=== PATIENT | female | born 1970 | race Caucasian/White ===

== ENCOUNTER 2017-03-15 19:48 | Emergency (ER) | payer MEDICARE, OTHER ==
--- NOTE | 2017-03-15 20:22 | Diagnostic Imaging Report ---
SHELL MCGUIRE (TJ) - ER [facility] [address] [address] Report Submission Date: Mar 15, 2017 8:21:13 PM CDT Patient Study Name: SHANIA FIGUEROA Date: Mar 15, 2017 8:07:32 PM CDT Modality Type: CR Gender: F Description: CHEST : 68 Institution: [facility] Physician: SHELL MCGUIRE (TJ) - ER Chest 2 views History: Left rib pain and cough Findings: The frontal film is expiratory and nondiagnostic. On the lateral film there is no evidence of infiltrate or pleural effusion. Low lung volumes are observed. Heart size and pulmonary vascularity are normal. Surgical clips are present in the left upper quadrant. Mild splenomegaly may be present. Impression: Low lung volumes. The PA film is expiratory and nondiagnostic. Possible splenomegaly. Electronically signed on Mar 15, 2017 8:21:13 PM CDT by: Mo [place]
[2017-03-15] MEDS ORDERED: KETOROLAC TROMETHAMINE 60 MG/2 ML VIAL IM ONE (20:25)
[2017-03-15] MEDS ORDERED: guaiFENesin/CODEINE PHOS 30ML BOTTLE PO ONE (20:28)
--- NOTE | 2017-03-15 20:35 | ED Physician Documentation ---
Upper Respiratory Symptoms - HISTORIAN Historian: patient - HPI Stated Complaint: cough since for 4 days, Lt lower rib pain Chief Complaint: Cough/ Upper Respiratory Onset: days ago (Monday) Associated Symptoms: denies: fever, chills, earache, runny nose, sinus pain, sinus drainage, sore throat, chest pain, productive cough Further Comments: yes (46 year old female present with left lower chest wall pain, work with cough and deep breathing, tender to palpation. Patient denies any injury or fall.) - ROS CONST/EYES: denies: weakness, eye redness, eye itching CVS/RESP: chest pain. denies: shortness of breath, palpitations LYMPH: denies: leg swelling, rash, swollen glands, ankle swelling GI/: none NEURO/PSYCH: denies: fainting, dizziness MS/SKIN: denies: joint pain, muscle aches, rash - PAST HX Lung Disease: none PE Risk Factors: none Other History: other (hypothyroidism) Surgeries/Procedures: none Allergies/Adverse Reactions: Allergies Allergy/AdvReac Type Severity Reaction Status Date / Time No Known Drug Allergies Allergy Verified 03/15/17 20:03 Home Medications: Ambulatory Orders Medication Instructions Recorded Citalopram Hydrobromide [Celexa] 20 mg PO D 03/15/17 Ketorolac Tromethamine [Toradol] 10 mg PO TID #15 tablet 03/15/17 Loratadine [Claritin] 10 mg PO D 03/15/17 - SOCIAL HX Smoking History: non-smoker - FAMILY HX Family History: none - VITAL SIGNS Vital Signs: Vital Signs Temp Pulse Resp BP Pulse Ox 98.6 F 85 18 132/93 97 03/15/17 19:49 03/15/17 19:49 03/15/17 19:49 03/15/17 19:49 03/15/17 19:49 - REVIEWED ASSESSMENTS Nursing Assessment Reviewed: Yes Vitals Reviewed: Yes Progress - Progress Progress: 2039 Mild splenomegaly may be present per radiologist on xray. Discussed with patient, will progress with lab and CT Abdomen/pelvis [address] findings with patient. Recommended 1/2 bottle magnesium citrate tonight and simethicone prn. - EKG/XRAY/CT XRAY: chest (negative) ED Results Lab/Radiology - Lab Results Lab Results: Lab Results 03/15/17 03/15/17 21:00 21:00 WBC 4.70 K/ul K/ul (4.00-12.00) RBC 3.90 M/ul M/ul (3.90-5.20) Hgb 11.1 g/dL L g/dL (12.0-16.0) Hct 35.3 % % (34.5-46.5) MCV 90.3 fl fl (80.0-100.0) MCH 28.6 pg pg (28.0-34.0) MCHC 31.6 g/dL g/dL (30.0-36.0) RDW 13.8 % % (11.3-14.3) Plt Count 208 K/mm3 K/mm3 (130-400) Neut % (Auto) 62.4 % % (39.0-79.0) Lymph % (Auto) 27.7 % % (16.0-50.0) [place] % (Auto) 3.6 % % (0.0-11.0) Eos % (Auto) 3.9 % % (0.0-6.8) Baso % (Auto) 0.5 (0.0-1.5) Neut # 2.9 # k/uL # k/uL (1.4-7.7) Lymph # 1.3 # k/uL # k/uL (0.6-4.0) [place] # 0.2 # k/uL # k/uL (0.0-0.9) Eos # 0.2 # k/uL # k/uL (0.0-0.6) Baso # 0.0 # k/uL # k/uL (0.0-0.5) Reactive Lymphs % 1.9 % % (0.0-5.0) Reactive Lymphs # 0.1 # k/uL # k/uL (0.0-0.8) Sodium 139 mmol/L mmol/L (136-145) Potassium 4.3 mmol/L mmol/L (3.5-5.0) Chloride 108 mmol/L mmol/L (98-110) Carbon Dioxide 28 mmol/L mmol/L (20-32) BUN 22 mg/dL mg/dL (10-26) Creatinine 0.6 mg/dL mg/dL (0.4-1.5) Estimated Creat Clear 161 Est GFR ( Amer) > 60 (60 - ) Est GFR (Non-Af Amer) > 60 (60 - ) Glucose 102 mg/dL H mg/dL (70-99) Calcium 9.2 mg/dL mg/dL (8.5-10.5) Total Bilirubin 0.3 mg/dL mg/dL (0.2-1.2) AST 34 U/L U/L (0-41) ALT 50 U/L H U/L (0-45) Alkaline Phosphatase 137 U/L H U/L (46-116) Total Protein 7.4 g/dL g/dL (6.0-8.5) Albumin 4.5 g/dL g/dL (3.0-5.5) - Radiology Radiology Impressions: Chest 2 views History: Left rib pain and cough Findings: The frontal film is expiratory and nondiagnostic. On the lateral film there is no evidence of infiltrate or pleural effusion. Low lung volumes are observed. Heart size and pulmonary vascularity are normal. Surgical clips are present in the left upper quadrant. Mild splenomegaly may be present. Impression: Low lung volumes. The PA film is expiratory and nondiagnostic. Possible splenomegaly. CT of the abdomen and pelvis with contrast Clinical history: Productive cough. Left-sided rib pain under the breast. Shortness of breath. Contrast administered: 92 ml of Omnipaque-300. Technique: CT of the abdomen and pelvis is performed with intravenous infusion of contrast. Sagittal and coronal reconstructions are performed by the technologist. Findings: There is dependent atelectasis in the lung bases. The liver and spleen demonstrate normal attenuation without focal defect. The gallbladder is surgically absent. There is mild distension of the extrahepatic and central intrahepatic biliary tree with the common bile duct measuring up to 11 mm in diameter. There is no pancreatic or adrenal abnormality. The kidneys demonstrate symmetric enhancement. There is no retroperitoneal mass or significant adenopathy. The appendix is visualized and is within normal limits. The bladder is unremarkable. There is no free fluid in the pelvis or abdomen. Uterus and adnexal structures are within normal limits. Postoperative changes are seen in the upper abdomen consistent with previous gastric bypass. Impression: 1. Postoperative changes. 2. Mild distension of the biliary tree likely related to the patient's history of prior cholecystectomy. 3. Vascular calcification. 4. Negative appendix. - Orders Orders: ED Orders Category Date Time Status CHEST 2 VIEW [CHEST P.A.&LAT 2 VIEWS] [RAD] Stat Exams 03/15/[address] ABD & PELVIS W/ CON Stat Exams 03/15/17 Ordered CBC/PLATELET/DIFF Stat Lab 03/15/17 21:00 Completed CMP Stat Lab 03/15/17 21:00 Completed SERUM HCG Stat Lab 03/15/17 Ordered Ketorolac Tromethamine [Toradol] Med 03/15/17 20:25 Discontinued 60 mg IM NOW ONE guaiFENesin/CODEINE PHOS 30ML [Robitussin AC] Med 03/15/17 20:28 Discontinued 10 ml PO NOW ONE Upper Respiratory Symptoms - EXAM General Appearance: mild distress EENT: eyes nml inspection, nml ENT inspection, lids & conjunct. nml, PERRL, ear nml, nose nml, pharynx nml, airway nml Respiratory: no resp. distress, breath sounds nml, no pain on inspiration, speaks full sentences, chest wall tenderness (left lateral chest wall; along sternal borders. 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 Do not take ibuprofen, aleve, naproxen or any other NSAID while you are on toradol. Take 1/2 bottle of magnesium citrate tonight. It is over the counter. Home Medications: Ambulatory Orders Citalopram Hydrobromide [Celexa] 20 mg PO D 03/15/17 Ketorolac Tromethamine [Toradol] 10 mg PO TID #15 tablet 03/15/17 Loratadine [Claritin] 10 mg PO D 03/15/17 Condition: Stable Disposition: 01 HOME, SELF-CARE Decision to Admit: NO Decision Time: 22:15
[2017-03-15 21:05] LABS: BASOPHILS % 0.5 (0.0-1.5); EOSINOPHILS % 3.9 % (0.0-6.8); MEAN CORPUSCULAR HEMOGLOBIN 28.6 pg (28.0-34.0); MEAN CORPUSCULAR VOLUME 90.3 fl (80.0-100.0); MONOCYTES % 3.6 % (0.0-11.0); NEUTROPHILS # 2.9 # k/uL (1.4-7.7)
[2017-03-15 21:21] LABS: eGFR (African) > 60; eGFR (Non-African) > 60
--- NOTE | 2017-03-15 22:23 | Diagnostic Imaging Report ---
SHELL MCGUIRE (TJ) - ER [facility] [address] [facility].[address] [address] Report Submission Date: Mar 15, 2017 10:08:21 PM CDT Patient Study Name: SHANIA FIGUEROA Date: Mar 15, 2017 9:38:26 PM CDT Modality Type: CT\SR Gender: F Description: CT ABD & PELVIS W/ CON : 68 Institution: [facility] Physician: SHELL MCGUIRE) - ER CT of the abdomen and pelvis with contrast Clinical history: Productive cough. Left-sided rib pain under the breast. Shortness of breath. Contrast administered: 92 ml of Omnipaque-300. Technique: CT of the abdomen and pelvis is performed with intravenous infusion of contrast. Sagittal and coronal reconstructions are performed by the technologist. Findings: There is dependent atelectasis in the lung bases. The liver and spleen demonstrate normal attenuation without focal defect. The gallbladder is surgically absent. There is mild distension of the extrahepatic and central intrahepatic biliary tree with the common bile duct measuring up to 11 mm in diameter. There is no pancreatic or adrenal abnormality. The kidneys demonstrate symmetric enhancement. There is no retroperitoneal mass or significant adenopathy. The appendix is visualized and is within normal limits. The bladder is unremarkable. There is no free fluid in the pelvis or abdomen. Uterus and adnexal structures are within normal limits. Postoperative changes are seen in the upper abdomen consistent with previous gastric bypass. Impression: 1. Postoperative changes. 2. Mild distension of the biliary tree likely related to the patient's history of prior cholecystectomy. 3. Vascular calcification. 4. Negative appendix. Electronically signed on Mar 15, 2017 10:08:21 PM CDT by: Mk [place]
[2017-03-16 00:29] VITALS: BP 134/78
== END 2017-03-15 22:25 | disposition home or self-care (01) ==
LOC: ED 19:48
DX: R09.1 Pleurisy (principal); R14.1 Gas pain
CPT/HCPCS: 71020; 74177; 80053; 85025; J1885; 84703; 96372; 99283; A9698; S1016

== ENCOUNTER 2017-04-17 13:08 | Emergency (ER) | payer MEDICARE ==
[2017-04-17] MEDS ORDERED: ORPHENADRINE CITRATE 60 MG/2ML IM ONE (13:23)
[2017-04-17] MEDS ORDERED: BUTORPHANOL TARTRATE 2 MG/ML VIAL IM ONE (13:23)
[2017-04-17] MEDS ORDERED: KETOROLAC TROMETHAMINE 60 MG/2 ML VIAL IM ONE (13:24)
[2017-04-17 14:17] VITALS: BP 110/74
--- NOTE | 2017-04-17 18:27 | ED Physician Documentation ---
Low Back Pain - HISTORIAN Historian: patient - HPI Stated Complaint: back pain Chief Complaint: Low Back Pain/ Injury History: history of chronic pain: Onset: days ago (Monday) Duration: continues in ED Recent Injury: No Severity: severe Worsened By:: supine Relieved By: nothing Further Comments: yes (46 year old female patient presents with back pain radiating down left leg. Patient denies heavy lifting, reports history of bulging disk in L-spine. Rates pain 9/10, denies loss of bowel or bladder, denies numbness.) - ROS CONST: no problems CVS/RESP: none EYES/ENT: none MS/SKIN/LYMPH: leg pain (left), back pain. denies: calf pain, neck pain, joint pain, leg swelling, rash, swollen glands, ankle swelling Neuro/Psych: none GI/: denies: abdominal pain, black stools - PAST HX Past History: back pain Other History: other (hypothyroidism, depression, hypothyroidism) Surgeries/Procedures: cholecystectomy, BTL, , other (gastric bypass, right carpal tunnel, ) Allergies/Adverse Reactions: Allergies Allergy/AdvReac Type Severity Reaction Status Date / Time No Known Drug Allergies Allergy Verified 04/17/17 13:52 Home Medications: Ambulatory Orders Medication Instructions Recorded Citalopram Hydrobromide [Celexa] 20 mg PO D 03/15/17 Loratadine [Claritin] 10 mg PO D 03/15/17 Baclofen [Liorasal] 10 mg PO QID #30 tablet 04/17/17 Levothyroxine Sodium [Synthroid] 75 mcg PO DAILY 04/17/17 Methylprednisolone [Medrol] 4 mg PO DAILY #1 tab.ds.pk 04/17/17 - SOCIAL HX Smoking History: cigarettes - FAMILY HX Family History: none - VITAL SIGNS Vital Signs: Vital Signs Temp Pulse Resp BP Pulse Ox 98.1 F 82 18 110/74 98 04/17/17 14:16 04/17/17 14:16 04/17/17 14:16 04/17/17 14:16 04/17/17 14:16 - REVIEWED ASSESSMENTS Nursing Assessment Reviewed: Yes Vitals Reviewed: Yes Progress - Progress Progress: Patient medicated with stadol, toradol and norflex while in ER. ED Results Lab/Radiology - Orders Orders: ED Orders Category Date Time Status Butorphanol Tartrate [Stadol] Med 04/17/17 13:23 Discontinued 2 mg IM NOW ONE Ketorolac Tromethamine [Toradol] Med 04/17/17 13:24 Discontinued 60 mg IM NOW ONE Orphenadrine Citrate [Norflex] Med 04/17/17 13:23 Discontinued 60 mg IM NOW ONE Low Back Pain/Injury - Physical Exam General Appearance: moderate distress EENT: eye inspection normal, IVY Resp/CVS: chest non-tender, breath sounds nml, heart sounds nml, no resp. distress, lungs clear, reg. rate & rhythm Abdomen: non-tender, no organomegaly, no pulsatile mass Back: non-tender, painless ROM Straight Leg Raising: Positive Left, Positive Right Neuro/Psych: oriented x3, motor nml, sensation nml, bilat. 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 You may use Tylenol every 4hour as needed for pain. Limit your dose to less than 4 G per day. You may want to try massage, biofreeze, waleska jakcson or aspercream Home Medications: Ambulatory Orders Citalopram Hydrobromide [Celexa] 20 mg PO D 03/15/17 Loratadine [Claritin] 10 mg PO D 03/15/17 Baclofen [Liorasal] 10 mg PO QID #30 tablet 04/17/17 Levothyroxine Sodium [Synthroid] 75 mcg PO DAILY 04/17/17 Methylprednisolone [Medrol] 4 mg PO DAILY #1 tab.ds.pk 04/17/17 Condition: Stable Disposition: 01 HOME, SELF-CARE Decision to Admit: NO Decision Time: 14:05
== END 2017-04-17 14:16 | disposition home or self-care (01) ==
LOC: ED 13:08
DX: M54.42 Lumbago with sciatica, left side (principal)
CPT/HCPCS: J0595; J1885; J2360; 96372; 99283

== ENCOUNTER 2017-04-18 22:55 | Emergency (ER) | payer MEDICARE ==
[2017-04-18 23:03] VITALS: BP 136/78
[2017-04-18] MEDS ORDERED: KETOROLAC TROMETHAMINE 60 MG/2 ML VIAL ONE (23:09)
[2017-04-18] MEDS ORDERED: ORPHENADRINE CITRATE 60 MG/2ML ONE (23:09)
[2017-04-18] MEDS ORDERED: KETOROLAC TROMETHAMINE 60 MG/2 ML VIAL IM ONE (23:27)
[2017-04-18] MEDS ORDERED: ORPHENADRINE CITRATE 60 MG/2ML IM ONE (23:28)
--- NOTE | 2017-04-18 23:35 | ED Physician Documentation ---
Low Back Pain - HISTORIAN Historian: patient, friend - [facility] Stated Complaint: BACK PAIN Chief Complaint: Low Back Pain/ Injury Additional Information: pt has chronic lo back kkpain has bulging l4-5 disc w/radicular pain lt leg-has been on oxycodone for 15 yrs-here las noct for pain shot History: history of chronic pain: Onset: days ago (intermittent for 5-6 but chronic recurrent. has had ct and mri -under care DR WHEAT) Duration: continues in ED Recent Injury: No (has been in bed w/heat etc) Severity: moderate Quality: sharp, similar- prior back pain Associated Symptoms: denies: fever, chills Worsened By:: upright position, movement to RT flexion, movement to LT flexion Relieved By: remaining still - ROS CONST: no problems CVS/RESP: none EYES/ENT: none MS/SKIN/LYMPH: none Neuro/Psych: depression - PAST HX Past History: back pain (hypothryoid ch back pain depression) Surgeries/Procedures: cholecystectomy (btl), Allergies/Adverse Reactions: Allergies Allergy/AdvReac Type Severity Reaction Status Date / Time No Known Drug Allergies Allergy Verified 04/18/17 23:17 Home Medications: Ambulatory Orders Medication Instructions Recorded Citalopram Hydrobromide [Celexa] 20 mg PO D 03/15/17 Loratadine [Claritin] 10 mg PO D 03/15/17 Baclofen [Liorasal] 10 mg PO QID #30 tablet 04/17/17 Levothyroxine Sodium [Synthroid] 75 mcg PO DAILY 04/17/17 Methylprednisolone [Medrol] 4 mg PO DAILY #1 tab.ds.pk 04/17/17 - SOCIAL HX Smoking History: non-smoker Alcohol Use: none Drug Use: none - FAMILY HX Family History: no significant history - VITAL SIGNS Vital Signs: Vital Signs Temp Pulse Resp BP Pulse Ox 97.8 F 74 24 136/78 99 04/18/17 23:00 04/18/17 23:00 04/18/17 23:00 04/18/17 23:00 04/18/17 23:00 - REVIEWED ASSESSMENTS Nursing Assessment Reviewed: Yes Vitals Reviewed: Yes ED Results Lab/Radiology - Orders Orders: ED Orders Category Date Time Status Ketorolac Tromethamine [Toradol] Med 04/18/17 23:09 Discontinued 60 mg .ROUTE .STK-MED ONE Ketorolac Tromethamine [Toradol] Med 04/18/17 23:27 Once 60 mg IM NOW ONE Orphenadrine Citrate [Norflex] Med 04/18/17 23:09 Discontinued 60 mg .ROUTE .STK-MED ONE Orphenadrine Citrate [Norflex] Med 04/18/17 23:28 Once 60 mg IM NOW ONE Low Back Pain/Injury - Physical Exam General Appearance: moderate distress EENT: eye inspection normal Neck: non-tender (but has intermittent neck kpain) Resp/CVS: chest non-tender, breath sounds nml, heart sounds nml Abdomen: non-tender Back: CVA tenderness, muscle spasm Neuro/Psych: oriented x3, sensation nml, mood/affect nml Skin: warm/dry, normal color. No: cyanosis, diaphoresis Extremities: non-tender, normal range of motion Discharge Clincal Impression: acute exaberation chronic lo back kpain Referrals: Jovanni Cai [Primary Care Provider] - 2 Days Home Medications: Ambulatory Orders Citalopram Hydrobromide [Celexa] 20 mg PO D 03/15/17 Loratadine [Claritin] 10 mg PO D 03/15/17 Baclofen [Liorasal] 10 mg PO QID #30 tablet 04/17/17 Levothyroxine Sodium [Synthroid] 75 mcg PO DAILY 04/17/17 Methylprednisolone [Medrol] 4 mg PO DAILY #1 tab.ds.pk 04/17/17 Condition: Fair Disposition: 01 HOME, SELF-CARE Decision to Admit: NO Decision Time: 23:35
== END 2017-04-18 23:38 | disposition home or self-care (01) ==
LOC: ED 22:55
DX: M54.5 Low back pain (principal); G89.29 Other chronic pain
CPT/HCPCS: J1885; J2360; 96372; 99283

== ENCOUNTER 2018-12-03 00:24 | Emergency (ER) | payer MEDICARE ==
--- NOTE | 2018-12-03 00:36 | ED Physician Documentation ---
General Adult - HISTORIAN Historian: patient - HPI Stated Complaint: pain in left hip after dancing. No fall Chief Complaint: Hip Pain Onset: hours (5) Timing: still present Severity: mild Further Comments: yes (She reports she was dancing and heard a "pop" in her hip and notes "terrible pain since" she has not had any OTC meds. She has no loss of sensation. No loss of control of bowel or bladder.) Last known Well Code/Unknown Code: Unknown - ROS CONST: no problems - PAST HX Past History: other (depression and hypothyroidism ) Immunizations: UTD Allergies/Adverse Reactions: Allergies Allergy/AdvReac Type Severity Reaction Status Date / Time No Known Drug Allergies Allergy Verified 12/03/18 00:50 Home Medications: Ambulatory Orders Medication Instructions Recorded Citalopram Hydrobromide [Celexa] 20 mg PO D 03/15/17 Loratadine [Claritin] 10 mg PO D 03/15/17 Levothyroxine Sodium [Synthroid] 75 mcg PO DAILY 04/17/17 - SOCIAL HX Smoking History: cigarettes Alcohol Use: none Drug Use: none - FAMILY HX Family History: No - VITAL SIGNS Vital Signs: Vital Signs Temp Pulse Resp BP Pulse Ox 136/78 04/18/17 23:37 - REVIEWED ASSESSMENTS Nursing Assessment Reviewed: Yes Vitals Reviewed: Yes Progress - Progress Progress: 0130: Pain is improved per pt. Results discussed and she is agreeable to the plan DG ED Results Lab/Radiology - Radiology Radiology Impressions: Left hip two views History: Hip pain and popping Findings: A left femoral neck bone island is present. The hip is otherwise normal without fracture, dislocation, or arthropathy. Electronically signed on Dec 03, 2018 1:21:00 AM EPIC AMBULATORY ANALYST by: Mo Lane AP pelvis History: Left hip pain and popping sensation Findings: The osseous pelvis is intact without fracture, dislocation, arthropathy, or focal bone lesion. Lower lumbar spondylosis is noted. Electronically signed on Dec 03, 2018 1:21:57 AM EPIC AMBULATORY ANALYST by: Mo Lane General Adult Physical Exam - PHYSICAL EXAM GENERAL APPEARANCE: mild distress EENT: eye inspection normal, ENT inspection normal, no signs of dehydration NECK: normal inspection, thyroid normal RESPIRATORY: no resp distress, chest non-tender, breath sounds normal CVS: reg rate & rhythm, heart sounds normal, equal pulses ABDOMEN: soft, normal bowel sounds, no distension, non-tender SKIN: warm/dry, normal color EXTREMITIES: no edema, tenderness (with palpation to left hip ) NEURO: oriented X3, CN's nml as tested, motor nml, sensation nml, mood/affect nml, cognition normal Discharge Clincal Impression: Left hip pain Referrals: Jovanni Cai [Primary Care Provider] - 2 Days Comments: 1. Tramadol 50 mg take 1 by mouth every 8 hours as needed for pain 2. Medrol dose pack - as directed 3. Follow up with PCP in 2-4 days if no improvement 4. Return to ER for any concerns Condition: Stable Disposition: 01 HOME, SELF-CARE Decision to Admit: NO (t) Date of Decison to Admit: 12/03/18 Decision Time: 01:36
[2018-12-03] MEDS ORDERED: KETOROLAC TROMETHAMINE 60 MG/2 ML VIAL IM ONE (01:09)
[2018-12-03 01:46] VITALS: BP 120/74
--- NOTE | 2018-12-03 06:04 | Diagnostic Imaging Report ---
QUYNH MATOS [facility] [address] [facility] [address], [place]. 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 Lower lumbar spondylosis is noted. Electronically signed on Dec 03, 2018 1:21:57 AM NATHALIA by: Mo [place]
--- NOTE | 2018-12-03 06:04 | Diagnostic Imaging Report ---
QUYNH MATOS [facility] [address] [facility] [address] 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 The hip is otherwise normal without fracture, dislocation, or arthropathy. Electronically signed on Dec 03, 2018 1:21:00 AM NATHALIA by: Mo [place]
== END 2018-12-03 01:42 | disposition home or self-care (01) ==
LOC: ED 00:24
DX: M25.552 Pain in left hip (principal)
CPT/HCPCS: 72170; 73502; 96372; 99282; 99284; J1885

== ENCOUNTER 2019-07-08 21:26 | Emergency (ER) | payer MEDICARE, OTHER ==
--- NOTE | 2019-07-08 22:06 | ED Physician Documentation ---
GI Bleed - HPI Chief Complaint: Abdominal Pain Onset: days ago (14) Further Comments: yes (49 year old female patient presents with complaint of diarrhea for the past 2 weeks. Patient states she got home from [place] 2 weeks ago and has diarrhea ever since. Patient reports she went into [place] for 1 day. No one else in home is ill. Patient states everything she eats and drinks "goes straight through me".) - Associated Symptoms Description of Stools: diarrhea Abdominal Pain: cramping, periumbilical Emesis Description: denies: blood, coffee grounds, blood-streaked Description of Rectal Bleed: denies: bleeding w/o stools, bright red blood on paper, blood mixed w/ stool, blood streaks on stool, bloody diarrhea Other Related Symptoms: nausea. denies: vomiting - ROS CONST: recent illness SKIN/LYMPH: denies: leg swelling, rash, swollen glands, ankle swelling, other CVS/RESP: none GI/: denies: rectal intercourse, problems urinating, testicular pain, foreign body, genital pain, other EYES/ENT: denies: problems with vision, sore throat, nose bleed, other MS: denies: none, calf pain, neck pain, joint pain, leg swelling, rash, swollen glands, leg pain, back pain, ankle swelling, other NEURO/PSYCH: denies: headache, lost feeling, confusion, anxiety, depression, loss of power, other - PAST HX Past History: denies: diverticulitis Surgeries/Procedures: appendectomy, cholecystectomy, other (gastric bypass, tummy tuck, partial hyst, bilat tubal) Allergies/Adverse Reactions: Allergies Allergy/AdvReac Type Severity Reaction Status Date / Time No Known Drug Allergies Allergy Verified 07/08/19 22:26 Home Medications: Ambulatory Orders Medication Instructions Recorded Citalopram Hydrobromide [Celexa] 20 mg PO D 03/15/17 Loratadine [Claritin] 10 mg PO D 03/15/17 Levothyroxine Sodium [Synthroid] 75 mcg PO DAILY 04/17/17 Azithromycin 500 mg PO DAILY #2 tablet 07/08/19 Levothyroxine Sodium [Synthroid] 112 mcg PO DAILY 07/08/19 Loratadine 10 mg PO DAILY 07/08/19 Meloxicam 15 mg PO DAILY 07/08/19 Promethazine HCl [Phenergan] 12.5 mg PO Q6H PRN #30 tablet 07/08/19 - SOCIAL HX Smoking History: cigarettes - FAMILY HX Family History: denies: none - VITAL SIGNS Vital Signs: Vital Signs Temp Pulse Resp BP Pulse Ox 98.6 F 89 18 130/90 100 07/08/19 21:28 07/08/19 21:28 07/08/19 21:28 07/08/19 21:28 07/08/19 21:28 - REVIEWED ASSESSMENTS Nursing Assessment Reviewed: Yes Vitals Reviewed: Yes ED Results Lab/Radiology - Radiology Radiology Impressions: CT abdomen and pelvis with contrast Clinical history: Abdominal pain and diarrhea. Contrast administered: 89 mL of Omnipaque. Technique: CT of the abdomen and pelvis is performed without oral or intravenous administration of contrast. Sagittal and coronal reconstructions were performed by the technologist. Findings: There is minimal dependent atelectasis in the right lung base. The lung bases are otherwise clear. Liver and spleen demonstrate normal attenuation without focal defect. Gallbladder is surgically absent. There is no pancreatic or adrenal abnormality. The kidneys demonstrate symmetric enhancement. There are postoperative changes consistent with previous gastric bypass. Spondylitic changes are seen in the thoracolumbar spine. There is degenerative anterolisthesis at L4-5 measuring 2-3 mm. Vascular calcification is present in the abdominal aorta without evidence of aneurysm. Bladder is unremarkable. The uterus and adnexal regions are within normal limits. Gas and stool are present in the colon. Impression: 1. Postoperative changes. 2. Negative appendix. 3. Thoracolumbar spondylosis with degenerative anterolisthesis at L4-5. Electronically signed on Jul 08, 2019 11:16:47 PM CDT by: kM Velasquez - Orders Orders: ED Orders Category Date Time Status Place IV Lock 1T Care 07/08/19 22:[address] ABD & PELVIS W/ CON Stat Exams 07/08/19 Ordered CBC/PLATELET/DIFF Stat Lab 07/08/19 22:25 Received CMP Stat Lab 07/08/19 22:25 Received GIARDIA ANTIGEN, EIA, STOOL Stat Lab 07/08/19 Ordered HELICOBACTER PYLORI AG, STOOL Stat Lab 07/08/19 Ordered 0.9 % Sodium Chloride [Normal Saline] 1,000 ml Med 07/08/19 22:01 Discontinued IV .STK-MED 0.9 % Sodium Chloride [Normal Saline] 1,000 ml Med 07/08/19 22:03 Discontinued IV NOW Azithromycin [Zithromax] Med 07/08/19 23:32 Once 500 mg PO NOW ONE fentaNYL CITRATE/PF [Sublimaze] Med 07/08/19 23:01 Once 50 mcg IVP NOW ONE Abdominal Pain Physical Exam - Physical Exam General Appearance: moderate distress EENT: eye inspection normal, IVY RESPIRATORY: no resp distress, chest non-tender, breath sounds normal CVS: reg rate & rhythm, heart sounds normal, equal pulses, no murmur, no gallop, PMI nml, no JVD, no friction rub, 24 ABDOMEN: soft, no organomegaly, no abdominal bruit, no distension, tenderness (generalized; worse in periumbilical area), increased BS BACK: normal inspection, no CVA tenderness SKIN: normal color, warm/dry, NR, INT, PAL, DR EXTREMITIES: non-tender, normal range of motion, no evidence of injury, no edema, J, 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 Make a follow up appointment with your primary care for this week to discuss the results of your stool studies. Diet: Clear liquids Sprite/7-up Juices apple, white grape Gatorade/Powerade Jello Popsicles When tolerating clear liquids, advance to bland/brat diet - such as crackers, rice, Bananas, apples/applesauce or toast Return to the emergency department or call your doctor, if you are having severe abdominal pain, fever >101.0, or if there is blood in the vomit or diarrhea, or you cannot keep down liquids or solid food. Condition: Stable Disposition: 01 HOME, SELF-CARE Decision to Admit: NO Decision Time: 23:30
[2019-07-08] MEDS: 0.9 % SODIUM CHLORIDE 1,000 ML IV ONE ×2 (23:11→23:14)
[2019-07-08] MEDS: fentaNYL CITRATE/PF 100 MCG/2 ML INJ. IVP ONE (23:11)
[2019-07-08] MEDS: AZITHROMYCIN 250 MG TABLET PO ONE (23:40)
[2019-07-09] MEDS: DIPHENOXYLATE /ATROPINE 2.5MG-0.025MG TABLET PO ONE (01:27)
[2019-07-09 01:33] VITALS: BP 128/76
[2019-07-09 06:46] LABS: eGFR (Non-African) > 60
[2019-07-09 06:47] LABS: BASOPHILS % 0.7 % (0.0-1.5); NEUTROPHILS # 1.8 # k/uL (1.4-7.7)
--- NOTE | 2019-07-09 06:47 | Diagnostic Imaging Report ---
SHELL BOSE (DRILLER OPERATOR) - ER [facility] [address] [facility].[address] [address] Report Submission Date: Jul 08, 2019 11:16:47 PM CDT Patient Study Name: SHANIA FIGUEROA Date: Jul 08, 2019 10:50:14 PM CDT Modality Type: CT\SR Gender: F Description: CT ABD PELVIS W/ CON : 68 Institution: [facility] Physician: SHELL BOSE (DRILLER OPERATOR) - ER CT abdomen and pelvis with contrast Clinical history: Abdominal pain and diarrhea. Contrast administered: 89 mL of Omnipaque. Technique: CT of the abdomen and pelvis is performed without oral or intravenous administration of contrast. Sagittal and coronal reconstructions were performed by the technologist. Findings: There is minimal dependent atelectasis in the right lung base. The lung bases are otherwise clear. Liver and spleen demonstrate normal attenuation without focal defect. Gallbladder is surgically absent. There is no pancreatic or adrenal abnormality. The kidneys demonstrate symmetric enhancement. There are postoperative changes consistent with previous gastric bypass. Spondylitic changes are seen in the thoracolumbar spine. There is degenerative anterolisthesis at L4-5 measuring 2-3 mm. Vascular calcification is present in the abdominal aorta without evidence of aneurysm. Bladder is unremarkable. The uterus and adnexal regions are within normal limits. Gas and stool are present in the colon. Impression: 1. Postoperative changes. 2. Negative appendix. 3. Thoracolumbar spondylosis with degenerative anterolisthesis at L4-5. Electronically signed on Jul 08, 2019 11:16:47 PM CDT by: Mk [place]
== END 2019-07-08 23:45 | disposition home or self-care (01) ==
LOC: ED 21:26
DX: R19.7 Diarrhea, unspecified (principal)
CPT/HCPCS: 36415; 74177; 80053; 85025; 87329; 87493; 96374; 99283; 99284; J3010; J7030; Q9967; S1016

== ENCOUNTER 2019-08-16 15:08 | Emergency (ER) | payer MEDICARE ==
[2019-08-16 15:17] VITALS: BP 147/94
--- NOTE | 2019-08-16 15:17 | ED Physician Documentation ---
Foot Injury - HISTORIAN Historian: patient - HPI Stated Complaint: left foot pain Chief Complaint: Lower Extremity Injury Additional Information: Patient presents to ED with complaints of left foot pain after tripping over her dog early this morning. Patient states the ball of her left foot has bruising, is swollen and painful since her fall this morning. Onset: hours (8) Where: home Severity: mild Context: fall Associated Symptoms:: swelling Modifying Factors:: pain on movement - ROS CONST: no problems CVS/RESP: denies: chest pain, shortness of breath NEURO: denies: head injury GI/: denies: nausea, vomiting MS/SKIN/LYMPH: denies: neck pain - PAST HX Past History: none Allergies/Adverse Reactions: Allergies Allergy/AdvReac Type Severity Reaction Status Date / Time No Known Drug Allergies Allergy Verified 08/16/19 15:18 Home Medications: Ambulatory Orders Medication Instructions Recorded Citalopram Hydrobromide [Celexa] 20 mg PO D 03/15/17 Levothyroxine Sodium [Synthroid] 112 mcg PO DAILY 07/08/19 Meloxicam 15 mg PO DAILY 07/08/19 - SOCIAL HX Smoking History: non-smoker Alcohol Use: none Drug Use: none - FAMILY HX Family History: none - VITAL SIGNS Vital Signs: Vital Signs Temp Pulse Resp BP Pulse Ox 128/76 07/09/19 01:31 - REVIEWED ASSESSMENTS Nursing Assessment Reviewed: Yes Vitals Reviewed: Yes ED Results Lab/Radiology - Radiology Radiology Impressions: Report Submission Date: Aug 16, 2019 3:42:17 PM CDT Patient Study Name: SHANIA FIGUEROA Date: Aug 16, 2019 3:06:07 PM CDT Modality Type: DX Gender: F Description: FOOT 3 VIEWS OR MORE : 68 Institution: [facility] Physician: ROHINI RUIZ Three views of the left foot Clinical history: Fall today. Pain. Findings: Examination of the left foot in plantar, lateral and oblique views demonstrates mild degenerative changes in the 1st metatarsophalangeal joint with minimal spur formation. There is no evident fracture and no lytic or blastic lesion. Small calcaneal spur is present of the site of insertion of the Achilles tendon. Impression: 1. Mild degenerative changes. 2. No fracture. Electronically signed on Aug 16, 2019 3:42:17 PM CDT by: Mk Velasquez Foot Injury Physical Exam - Physical Exam General Appearance: no acute distress, alert Foot: right foot: non-tender, normal inspection, normal range of motion, no evidence of injury, left foot: ecchymosis, limited range of motion, soft tissue tenderness, swelling Ankle: right: non-tender, normal inspection, normal range of motion, no evidence of injury Gait: normal Neuro: sensation nml, motor nml Vascular: no vascular compromise Tendons: tendon function nml Leg/Knee/Thigh: uninjured above ankle Skin: intact Head/ENT: nml inspection Neck/Back: nml inspection Resp/CVS: chest non-tender, breath sounds nml Abdomen: non-tender, pelvis stable Discharge Clincal Impression: Sprain of left foot Qualifiers: Encounter type: initial encounter Qualified Code(s): S93.602A - Unspecified sprain of left foot, initial encounter Referrals: Primary Doctor,No [Primary Care Provider] - 2 Days Additional Instructions: 1. Tylenol 650mg every 4 hours and/or Ibuprofen 600mg every 6 hours 2. Apply ice to affected area as needed for comfort 3. Wear boot with activity, remove with rest. Wear until follow up with Dr. Abad 4. Keep foot elevated when at rest 5. A referral has been sent to Dr. Abad. His office will be contacting you to make an appointment. 6. Return to ER for new or worsening symptoms Condition: Stable Disposition: 01 HOME, SELF-CARE Decision to Admit: NO Date of Decison to Admit: 08/16/19 Decision Time: 16:03
--- NOTE | 2019-08-17 00:02 | Diagnostic Imaging Report ---
ROHINI RUIZ [facility] [address] [facility] [address] Report Submission Date: Aug 16, 2019 3:42:17 PM CDT Patient Study Name: SHANIA FIGUEROA Date: Aug 16, 2019 3:06:07 PM CDT Modality Type: DX Gender: F Description: FOOT 3 VIEWS OR MORE : 68 Institution: [facility] Physician: ROHINI RUIZ Three views of the left foot Clinical history: Fall today. Pain. Findings: Examination of the left foot in plantar, lateral and oblique views demonstrates mild degenerative changes in the 1st metatarsophalangeal joint with minimal spur formation. There is no evident fracture and no lytic or blastic lesion. Small calcaneal spur is present of the site of insertion of the Achilles tendon. Impression: 1. Mild degenerative changes. 2. No fracture. Electronically signed on Aug 16, 2019 3:42:17 PM CDT by: Mk [place]
== END 2019-08-16 16:11 | disposition home or self-care (01) ==
LOC: ED 15:08
DX: S93.602A Unspecified sprain of left foot, initial encounter (principal); W01.0XXA Fall on same level from slipping, tripping and stumbling without subsequent striking against object, initial encounter; Y92.019 Unspecified place in single-family (private) house as the place of occurrence of the external cause
CPT/HCPCS: 73630; 99281; 99284